=== PATIENT | male | born 1980 | race Caucasian/White ===

== ENCOUNTER 2018-10-21 15:23 | Emergency (ER) | payer SELFPAY ==
[2018-10-21 15:35] VITALS: BP 126/92; PULSE 99; RESP 18; TEMP 37.4; O2SAT 96
--- NOTE | 2018-10-21 16:29 | ED.GENADUL_ITS ---
Discharge Plan Disposition Patient Disposition: HOME Condition: Stable Discharge Details Chief Complaint: RespSymp Clinical Impression: URI (upper respiratory infection) Primary Care Provider: Sonu Self ED Provider: Davy Montano Home Meds and New Rx's Prescriptions: New benzonatate 200 mg capsule 200 mg PO TID PRN (Reason: cough) Qty: 30 RF: 0 Discharge Instructions Instructions: Upper Respiratory Infection (ED) Additional Instructions: During illness you should stay well hydrated, get plenty of rest, and use [id number] cough and cold therapy. Potential options to include Tylenol cold and flu severe, Robitussin-DM, or other medications for control of your symptoms. Just take as directed on packaging. Feel free to return to the emergency department or follow-up with your primary care provider for reassessment for any worsening of your symptoms Referrals: Sonu Self MD [Primary Care Provider] - (As needed for reassessment) Medical Decision Making Patient presenting to the emergency department with flulike symptoms. Patient states that symptoms began 2 days ago. field staff manager initiated protocol for rapid flu testing which was reviewed as negative. Patient was assessed and shows symptoms consistent with upper respiratory viral infection. Patient is nontoxic in appearance with clear lung sounds, nasal congestion, otherwise unremarkable HEENT exam and cardiac exam. Patient prescribed Tessalon Perles for cough and recommended to use [id number] cough and cold medication during illness. Patient has no signs of meningitis, pneumonia, epiglottitis, peritonsillar or retropharyngeal abscess. After discussion of diagnosis and plan of care patient has no further needs, questions, or concerns and states clear understanding to return to the emergency department for any worsening symptoms. HPI General Mode of arrival: ambulatory . Date/Time Provider Initiated Documentation: 10/21/18 16:06 . Limitations to Documentation: no limitations . Information obtained by: patient and RN notes reviewed . History of Present Illness 38 year old M presents to the emergency department with the chief complaint of Fever, chills, cough, described as moderate, with intensity rated at 4. Quality is described as aching (Body aches), Patient started experiencing this day(s) (2) and it has been constant. Patient did receive the following treatments prior to arrival, NSAID Related Data Home Medications Medication Instructions Recorded Confirmed benzonatate 200 mg PO TID PRN #30 cap 10/21/18 Previous Rx's Medication Instructions Recorded benzonatate 200 mg PO TID PRN #30 cap 10/21/18 Allergies Allergy/AdvReac Type Severity Reaction Status Date / Time No Known Allergies Allergy Unverified 10/21/18 15:40 General Stated Complaint: RespSymp TERESE: 3 Review of Systems Constitutional Reports chills, Reports fatigue, Reports fever(s) and Reports malaise ENT Denies otalgia, Reports nasal congestion, Reports nasal discharge, Reports sinus pressure and Reports sore throat Cardiovascular Denies dyspnea Respiratory Reports cough, Denies pain with cough and Denies dyspnea Musculoskeletal Denies joint swelling Integumentary/Breasts Denies rash Endocrine Reports fatigue PFSH Social History Smoking/Tobacco Use Status: Current every day Exam Const General: cooperative, comfortable and no acute distress Orientation: alert, awake and oriented x3 HENMT Head: normal to inspection Ears: hearing grossly normal bilaterally Face and sinus: sinus tenderness ethmoid Mouth: oral mucosae normal Throat: uvula midline, abnormal tonsil bilaterally erythema (mild) and posterior oropharynx abnormal erythema Eyes General: appearance normal, both eyes and all related structures Conjunctivae: conjunctivae normal Sclera: sclerae normal Neck Neck: normal visual inspection, full ROM, no lymphadenopathy, meningismus present and no JVD Resp Effort & Inspection: normal respiratory effort, able to speak in complete sentences, no audible wheezes and not labored Auscultation: clear to auscultation bilaterally Cardio Rate: regular rate Rhythm: regular rhythm Heart Sounds: S1 normal and S2 normal Skin General skin exam: no rashes or lesions noted and dry skin Rashes: no rashes Neuro General: alert, awake, oriented x3 and gait normal Course Vital Signs Temperature 37.4 C 10/21/18 15:35 Pulse 99 H 10/21/18 15:35 Respiratory Rate 18 10/21/18 15:35 Blood Pressure 126/92 H 10/21/18 15:35 Pulse Oximetry 96 10/21/18 15:35 Temperature 37.4 C 10/21/18 15:35 Temperature Source Temporal Artery Scan 10/21/18 15:35 Pulse 99 H 10/21/18 15:35 Respiratory Rate 18 10/21/18 15:35 Respiratory Effort 10/21/18 15:46 Respiratory Depth Normal 10/21/18 15:46 Blood Pressure 126/92 H 10/21/18 15:35 Blood Pressure Position Sitting 10/21/18 15:35 Pulse Oximetry 96 10/21/18 15:35 Oxygen Delivery Method Room Air 10/21/18 15:35 Oxygen Flow Rate 0 10/21/18 15:35 Lab/Test Results Lab/Test Results: 10/21/18 15:45 Nasopharynx Influenza Types A,B Antigen - Final
== END 2018-10-21 16:39 | disposition home or self-care (01) ==
PROVIDERS: Emergency Provider Nurse Practitioner Family; PCP Internal Medicine
DX: J06.9 Acute upper respiratory infection, unspecified (principal); F17.210 Nicotine dependence, cigarettes, uncomplicated
CPT/HCPCS: 87449; 99283

== ENCOUNTER 2020-02-28 07:03 | Emergency (ER) | payer SELFPAY ==
[2020-02-28 07:08] VITALS: BP 182/90; PULSE 90; TEMP 37; O2SAT 98
--- NOTE | 2020-02-28 07:12 | W.ED.GENAD ---
Discharge Plan Disposition Patient Disposition: HOME Condition: Good Discharge Details Chief Complaint: Orthopedic Clinical Impression: Bilateral fibular fractures Primary Care Provider: Sonu Self ED Provider: Rivera Thurman Home Meds and New Rx's Prescriptions: No Action No Known Home Meds RF: 0 Discharge Instructions Instructions: Leg Fracture (ED) Additional Instructions: Crutches for 7 to 10 days time until seen in clinic for follow-up. Ice 20 minutes at a time to reduce pain and swelling, elevate the legs. May use Tylenol and/or ibuprofen as needed for pain. Please follow-up with orthopedics as we discussed. They plan to see you next week. The office #[phone]. Call in the next few days for an appointment Return for worsening pain, cold/blue/numbness of the toes or any other acute concerns. Stand Alone Forms: Work Release Referrals: Hubert Jackson MD [ [facility] STAFF PHYSICIAN] - Discharge Data Discharge Date/Time-TO BE ENTERED AT DEPARTURE: 02/28/20 08:30 Medical Decision Making <Delta Centeno DO - Last Filed: 02/28/20 21:19> 39-year-old male with no past medical history presents for bilateral bishop and knee pain. Patient 3 days ago was trying to do a flip on the trampoline when he slammed his shins bilaterally on the lateral border of the trampoline. He has had continued pain since then, not amendable to NSAIDs. Worse with movement. He has developed mild to moderate bruising over the shins. Notable fibular head tenderness bilaterally, pain with movement of the knee, bruising throughout, and pain with active resistance to eversion of the ankles bilaterally causing referred pain to the proximal fibula's. Suspect notable contusion, concern for proximal fibular head fractures, symptoms seem inconsistent with blood clots at this time. Will get x-rays to rule out acute osseous fracture. <Rivera Thurman MD - Last Filed: 02/28/20 09:26> Received signout from Dr. Centeno. Please see his note regarding details of the history, initial exam. Patient with bilateral fibular head fractures. Discussed with Dr. Jackson. Will place him on crutches with weightbearing as tolerated and follow-up in clinic in 1 week's time. Discussed conservative treatment at home. Patient provided with a work note. 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 HPI <Delta Centeno DO - Last Filed: 02/28/20 21:19> General Date/Time Provider Initiated Documentation: 02/28/20 07:04. HPI Narrative: 39-year-old male with no significant past medical history who presents today for evaluation of bilateral leg pain. Patient states that 3 days ago he was on a trampoline, did a flip with his children and unfortunately simultaneously hit both of his shins on the metal edge while trying to do said flip. He had mild pain at that time, however since then he has had notable continued pain, worse with ambulation of movement. He has been taking ibuprofen which is only given some alleviation of the symptoms. Pain is located in the proximal fibula is only, and bilaterally. No patellar pain, no femur pain, no ankle pain. Pain is made worse with ambulation, movement and palpation. He denies any numbness or tingling. He denies history of blood clots. No other complaints at this time. Related Data Home Medications Medication Instructions Recorded Confirmed Unknown [No Known Home Meds] 02/28/20 02/28/20 Allergies Allergy/AdvReac Type Severity Reaction Status Date / Time bee venom protein (honey bee) Allergy Unverified 02/28/20 07:13 General Stated Complaint: Orthopedic TERESE: 3 Review of Systems <Delta Centeno DO - Last Filed: 02/28/20 21:19> All systems reviewed & are unremarkable except as noted in HPI and below PFSH <Delta Centeno DO - Last Filed: 02/28/20 21:19> Social History (Updated 10/21/18 @ 16:30 by Davy Montano NP) Smoking/Tobacco Use Status: Current every day Tobacco Type: cigarettes Alcohol Intake: current Alcohol Intake frequency: 0-2 drinks per day Alcohol type: beer Drug use: Never Substance use type: does not use Do you feel safe at home: Yes Do you feel safe in your relationship?: Yes Exam <Delta Centeno DO - Last Filed: 02/28/20 21:19> Narrative Exam Narrative: 1.Const: Well-nourished, Well-developed, appearing stated age 2.Eyes: PERRL, no conjunctival injection, and symmetrical lids. 3.ENT: Atraumatic external nose and ears. Moist MM. Neck: Symmetric, trachea midline, No thyromegaly. 4.CVS: +S1/S2, No murmurs or gallops. Peripheral pulses 2+ and equal in all extremities. Brisk capillary refill in all extremities. 5.RESP: Unlabored respiratory effort. Clear to auscultation bilaterally. No wheezes rales or rhonchi 6.GI: Soft, Nontender/Nondistended, No hepatosplenomegaly. No guarding or rebound. 7.MSK: Normocephalic, both legs demonstrate very similar findings, there is bruising noted over the mid bishop anteriorly, as well as proximally over the proximal fibular heads bilaterally. Notable tenderness over the fibular heads bilaterally, but no tibial plateau tenderness. Pain is present with movement of the knees especially with varus stretching bilaterally. Additionally he has referred pain to his proximal fibula is when there is active movement against ankle eversion. Aside for the bruising the patient has good brisk capillary refill, normal sensation, good dorsiflexion of the great toe, as well as plantar and dorsiflexion of the feet. 8.Skin: Warm, Dry. No rashes or lesions. 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 Sensation grossly intact, no focal neurologic deficits. 10.Psych: (AAO) x3. Appropriate mood and affect Course <Delta Centeno, DO - Last Filed: 02/28/20 21:19> Vital Signs Vital signs: Vital Signs Temperature 37.0 C 02/28/20 07:08 Pulse 90 02/28/20 07:08 Blood Pressure 182/90 H 02/28/20 07:08 Pulse Oximetry 98 02/28/20 07:08 Temperature 37.0 C 02/28/20 07:08 Temperature Source Temporal Artery Scan 02/28/20 07:08 Pulse 90 02/28/20 07:08 Blood Pressure 182/90 H 02/28/20 07:08 Blood Pressure Position Sitting 02/28/20 07:08 Pulse Oximetry 98 02/28/20 07:08 Oxygen Delivery Method Room Air 02/28/20 07:08 Oxygen Flow Rate 0 02/28/20 07:08 Pain Level 9 02/28/20 07:08 Sign Out <Deltacindy Centeno DO - Last Filed: 02/28/20 21:19> Sign Out Data: Sign Out Comment: Pending x-ray imaging results for fracture Last updated by Delta Centeno DO at 02/28/20 07:34
--- NOTE | 2020-02-28 07:50 | DI.RAD_ITS ---
EXAM: XR TIB/FIB RT CLINICAL HISTORY: hit metal trampoline, bilat prox fib pain TECHNIQUE: COMPARISON: No exams were available for comparison FINDINGS: Two views were obtained and show nondisplaced fibular head fracture as noted on radiographs of the kn ee. No additional fracture seen. IMPRESSION:
--- NOTE | 2020-02-28 07:50 | DI.RAD_ITS ---
EXAM: XR KNEE LT 3V AP,LAT,ARRON CLINICAL HISTORY: bilaeral knee and prox fib pain TECHNIQUE: COMPARISON: CR XR KNEE RT 3V AP,LAT,ARRON from 02/28/2020 FINDINGS: Three views were obtained, no significant knee joint effusion seen. There is a suspected nondisplaced fibular head fracture which by history is consistent with the patie nt's clinical presentation. No additional fracture seen. IMPRESSION:
--- NOTE | 2020-02-28 07:50 | DI.RAD_ITS ---
EXAM: XR KNEE RT 3V AP,LAT,ARRON CLINICAL HISTORY: bilaeral knee and prox fib pain TECHNIQUE: COMPARISON: CR XR KNEE LT 3V AP,LAT,ARRON from 02/28/2020 FINDINGS: Three views were obtained. No significant knee joint effusion seen. There is clinically reported yin spicion of proximal fibular fracture, there is in fact slight cortical discontinuity of the proximal fibula with suggestion of transverse lucency. Findings are consistent with a nondisplaced fibular he ad fracture. IMPRESSION:
--- NOTE | 2020-02-28 07:50 | DI.RAD_ITS ---
EXAM: XR TIB/FIB LT CLINICAL HISTORY: hit metal trampoline, bilat prox fib pain TECHNIQUE: COMPARISON: CR XR TIB/FIB RT from 02/28/2020 FINDINGS: Two views were obtained and show nondisplaced fracture of the fibular head as noted on radiographs of the knee. No additional fracture seen. IMPRESSION:
[2020-02-28] MEDS: Acetaminophen 500 MG TAB 1000 MG PO (08:07)
[2020-02-28] MEDS: Ibuprofen 800 MG TAB PO (08:08)
[2020-02-28] MEDS: Lidocaine 5% Patch 2 PATCH TP (08:08)
--- NOTE | 2020-02-28 08:26 | NUR.NOTE ---
Nursing Note: FAXED REFERRAL SENT TO ORTH[facility]
== END 2020-02-28 08:30 | disposition home or self-care (01) ==
PROVIDERS: Emergency Provider Emergency Medicine; PCP Internal Medicine
DX: S82.491A Other fracture of shaft of right fibula, initial encounter for closed fracture (principal); S82.492A Other fracture of shaft of left fibula, initial encounter for closed fracture; W09.8XXA Fall on or from other playground equipment, initial encounter; Y93.44 Activity, trampolining
CPT/HCPCS: 27780; 73562; 73590; E0114

== ENCOUNTER 2020-03-12 11:22 | Outpatient (CLI) | payer SELFPAY ==
--- NOTE | 2020-03-12 10:30 | DI.RAD_ITS ---
EXAM: XR ANKLE RT 2V CLINICAL HISTORY: f/u fracture TECHNIQUE: 2D digital imaging was performed. COMPARISON: No exams were available for comparison FINDINGS: No fracture or ankle mortise widening is seen. There is no talar dome defect. There are no signific ant significant degenerative changes. IMPRESSION: Negative right ankle.
--- NOTE | 2020-03-12 10:30 | DI.RAD_ITS ---
EXAM: XR ANKLE LT 2V CLINICAL HISTORY: f/u fracture TECHNIQUE: 2D digital imaging was performed. COMPARISON: CR XR TIB/FIB LT from 02/28/2020 CR XR ANKLE RT 2V from 03/12/2020 CR XR TIB/FIB LT from 03/12/2020 FINDINGS: No fracture or ankle mortise widening is seen. There is no talar dome defect. There are no signifi cant degenerative changes. IMPRESSION: Negative left ankle.
--- NOTE | 2020-03-12 10:30 | DI.RAD_ITS ---
EXAM: XR TIB/FIB RT CLINICAL HISTORY: fu fracture TECHNIQUE: 2D digital imaging was performed. COMPARISON: CR XR TIB/FIB RT from 02/28/2020 CR XR TIB/FIB LT from 02/28/2020 FINDINGS: There has been no change in alignment of the proximal fibular fracture. There is increased callus fo rmation around the fracture site. The knee and ankle are unremarkable as visualized. No new abnorma lities are seen. IMPRESSION: Healing fracture of the proximal fibula.
--- NOTE | 2020-03-12 10:30 | DI.RAD_ITS ---
EXAM: XR TIB/FIB LT CLINICAL HISTORY: fu fracture TECHNIQUE: 2D digital imaging was performed. COMPARISON: CR XR TIB/FIB LT from 02/28/2020 CR XR TIB/FIB RT from 03/12/2020 FINDINGS: There has been no change in alignment of the proximal fibular fracture. There is some callus formati on around the fracture site. No additional fractures or ankle mortise widening is seen. IMPRESSION: Healing fracture of the proximal fibula.
== END 2020-03-12 11:42 ==
PROVIDERS: PCP Internal Medicine; Referring Provider Internal Medicine; Visit Provider Student in an Organized Health Care Education/Training Program
DX: S82.491D Other fracture of shaft of right fibula, subsequent encounter for closed fracture with routine healing (principal); S82.492D Other fracture of shaft of left fibula, subsequent encounter for closed fracture with routine healing
CPT/HCPCS: 73590; 73600

== ENCOUNTER 2023-07-25 17:48 | Emergency (ER) | payer SELFPAY ==
[2023-07-25 17:55] VITALS: BP 179/100; PULSE 92; RESP 20; TEMP 37; O2SAT 97
--- NOTE | 2023-07-25 18:15 | DI.RAD_ITS ---
Exam(s) XR RIBS RT W PA LAT CHEST CLINICAL HISTORY: Right posterior rib pain. COMPARISON: CR CHEST 2 VIEWS PA,LAT from 03/05/2016 TECHNIQUE:: PA and lateral views of the chest and four views of the right ribs were performed. FINDINGS: LUNGS:Clear. No pleural abnormality seen. HEART: Normal. MEDIASTINUM: Normal. BONES: No displaced rib fracture is seen. No bony destructive lesion is seen. Stable mild lower thor acic compression fracture. Right shoulder unremarkable. OTHER FINDINGS: None. IMPRESSION: 1. Unremarkable radiographic appearance of the right ribs. 2. No acute pulmonary findings.
--- NOTE | 2023-07-25 18:57 | DI.VRAD_ITS ---
PROCEDURE INFORMATION: Exam: XR Right Ribs Exam date and time: 07/25/2023 6:40 PM Age: 43 years old Clinical indication: Chest wall pain and right-sided; Patient HX: Right posterior rib pain TECHNIQUE: Imaging protocol: Radiologic exam of the right ribs. Views: 2 views. COMPARISON: No relevant prior studies available. FINDINGS: Bones/joints: No acute fracture with attention to the right-sided ribs. Soft tissues: Normal. IMPRESSION: No acute fracture with attention to the right-sided ribs. PROCEDURE INFORMATION: Exam: XR Chest Exam date and time: 07/25/2023 6:40 PM Age: 43 years old Clinical indication: Chest wall pain and right-sided; Patient HX: Right posterior rib pain TECHNIQUE: Imaging protocol: Radiologic exam of the chest. Views: 2 views. COMPARISON: No relevant prior studies available. FINDINGS: Lungs: Mild hyperinflation without airspace consolidation. Pleural spaces: No pleural effusion. No pneumothorax. Heart/Mediastinum: No cardiomegaly. Bones/joints: No acute fracture. IMPRESSION: Mild hyperinflation without airspace consolidation. Dictated and Authenticated by: Aminata Mccallum MD. Ordering:CHER Jacinto MD
--- NOTE | 2023-07-25 22:15 | ED.GENADUL_ITS ---
Discharge Plan Disposition Patient Disposition: Home Discharge Details Clinical Impression: Contusion of back wall of thorax Primary Care Provider: Sonu Self ED Provider: Ophelia Montana Home Meds and New Rx's Prescriptions: New cyclobenzaprine 10 mg tablet 10 mg PO TID PRNQty: 20 0RF Continued ibuprofen 400 mg tablet 400 mg PO TID Discharge Instructions Instructions: Contusion in Adults (ED) Additional Instructions: take flexeril as prescribed This can help with pain Make sure you take at least 6 full inhalations the next lesions daily to prevent pneumonia You may apply Voltaren gel or use lidocaine patches over area of tenderness Keep wound clean and dry Please return earlier should you develop fever, chills, worsening shortness of breath Stand Alone Forms: Work Release Discharge Data Discharge Date/Time-TO BE ENTERED AT DEPARTURE: 07/25/23 19:58 Medical Decision Making 43-year-old male, alert and oriented, GCS 15 cranial nerves II through XII intact, clinically sober and of decisional capacity, ambulatory steady gait, abrasion and contusion noted to posterior thorax, no crepitus, lungs clear to auscultation, no tenderness to palpation in the abdomen or anterior thorax, no tenderness to arms or lower extremities Neurovascularly intact Chest x-ray and ribs per radiology interpretation my review does not show evidence of acute abnormality No hypoxia Blood pressure slightly elevated, encouraged to follow-up with primary care physician Encourage deep breathing, work note supplied Return precautions reviewed and patient expressed understanding HPI General Date/Time Provider Initiated Documentation: 07/25/23 17:56 . HPI Narrative: This 43-year-old male presents with contusion to posterior thorax. He was in a [place] and had side impact. He was able to self extricate, he denies any additional injuries. He denies any shortness of breath but does have pain with breathing. He denies any abdominal pain lower extremity pain, upper extremity pain, or history of coagulopathy. Related Data Home Medications Medication Instructions Recorded Confirmed ibuprofen 400 mg tablet 400 mg PO TID 03/12/20 03/12/20 cyclobenzaprine 10 mg tablet 10 mg PO TID PRN #20 tabs 07/25/23 Previous Rx's Medication Instructions Recorded cyclobenzaprine 10 mg tablet 10 mg PO TID PRN #20 tabs 07/25/23 Allergies Allergy/AdvReac Type Severity Reaction Status Date / Time bee venom protein (honey bee) Allergy Verified 03/12/20 10:34 General Stated Complaint: Chest/Rib TERESE: 3 PFSH All Active Problems (Updated 07/25/23 @ 19:52 by HESHAM Garrison) Contusion of back wall of thorax (Acute) No-show for appointment (Acute) Social History (Updated 10/21/18 @ 16:30 by Davy Montano NP) Smoking/Tobacco Use Status: Current every day Tobacco Type: cigarettes Smoking risk assessment performed?: Yes Alcohol Intake: current Alcohol Intake frequency: 0-2 drinks per day Alcohol type: beer Drug use: Never Substance use type: does not use Housing: house Do you feel safe at home: Yes Do you feel safe in your relationship?: Yes Course Vital Signs Vital signs: Vital Signs Temperature 37.0 C 07/25/23 17:55 Pulse 92 H 07/25/23 17:55 Respiratory Rate 20 07/25/23 17:55 Blood Pressure 179/100 H 07/25/23 17:55 Pulse Oximetry 97 07/25/23 17:55 Temperature 37.0 C 07/25/23 17:55 Pulse 92 H 07/25/23 17:55 Respiratory Rate 20 07/25/23 17:55 Respiratory Effort Normal, Non-Labored 07/25/23 18:04 Respiratory Depth Shallow 07/25/23 18:04 Respiratory Pattern Normal 07/25/23 18:04 Blood Pressure 179/100 H 07/25/23 17:55 Pulse Oximetry 97 07/25/23 17:55 Oxygen Delivery Method Room Air 07/25/23 17:55 Oxygen Flow Rate 0 07/25/23 17:55 Pain Level 7 07/25/23 18:04
== END 2023-07-25 19:58 | disposition home or self-care (01) ==
PROVIDERS: Emergency Provider Physician Assistant; PCP Internal Medicine
DX: S20.223A Contusion of bilateral back wall of thorax, initial encounter (principal); F17.210 Nicotine dependence, cigarettes, uncomplicated; V43.62XA Car passenger injured in collision with other type car in traffic accident, initial encounter; Y92.488 Other paved roadways as the place of occurrence of the external cause; Y93.89 Activity, other specified; Y99.9 Unspecified external cause status
CPT/HCPCS: 90472; 99283; 71046; 71100

== ENCOUNTER 2023-08-04 10:46 | Emergency (ER) | payer SELFPAY ==
[2023-08-04] VITALS (19 sets, daily range): BP systolic 151–179; BP diastolic 100–115; PULSE 90–110; RESP 18; TEMP 37; O2SAT 95–98
--- NOTE | 2023-08-04 11:00 | DI.RAD_ITS ---
Exam(s) XR RIBS RT PA CHEST 3V EXAM: XR RIBS RT PA CHEST 3V CLINICAL HISTORY: right rib injury one week ago, pain sob TECHNIQUE: 2D digital imaging was performed. Images were obtained. COMPARISON: No exams were available for comparison FINDINGS: MEDIASTINUM: Normal. HEART: Normal. PULMONARY VASCULATURE: Normal. LUNGS: Clear. PLEURAL SPACE: There is blunting of the right costophrenic angle suggesting a tiny right pleural effu douglas. No pneumothorax is seen. No left pleural effusion is present. BONE:Normal. RIGHT RIBS: There are minimally displaced fractures of the posterior aspects of the right 9th and 10t h ribs. OTHER FINDINGS:Normal. IMPRESSION: 1. Tiny right pleural effusion. No pneumothorax. 2. Minimally displaced fractures involving the posterior aspects of the right 9th and 10th ribs. DATA REPOSITORY: RADIATION DOSE DELIVERED:
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
[2023-08-04] MEDS: Lidocaine 5% Patch 1 PATCH TP (11:54)
[2023-08-04] MEDS: Ketorolac 15 MG/ML VIAL IVP (11:55)
[2023-08-04 11:59] LABS: Abs Immature Grans 0.04 10^3/uL (0.0-0.06); Absolute Eosinophil Count 0.19 10^3/uL (0.0-0.7); Absolute Lymphocyte Count 2.15 10^3/uL (1.2-3.4); Basophils % 0.8; Eosinophils % 1.6; HCT 48.6 % (40.0-50.0); HGB 16.8 g/dL (13.5-17.5); Immature Grans % 0.3; MCH 32.1 pg (27.0-33.0); MCHC 34.6 % (32.0-36.0); MCV 93 fL (80-95); MPV 8.2 fL (8.0-11.0); Monocytes % 5.9; Neutrophils % 73.4; Platelet Count 370 10^3/uL (130-400); RBC 5.24 10^6/uL (4.36-5.78); RDW 12.9 % (11.8-14.1); RDW-SD 43.9 fL; WBC 11.95 10^3/uL (4.4-10.8)
[2023-08-04 12:02] LABS: Absolute Monocyte Count 0.71 10^3/uL (0.1-0.8); Absolute Neutrophil Count 8.77 10^3/uL (1.2-6.7)
[2023-08-04 12:12] LABS: PTT Activated 27.5 sec (23.6-32.8); Prothrombin Time 9.7 sec (9.1-11.1)
[2023-08-04 12:13] LABS: ALT 35 U/L (16-63); AST 23 U/L (15-37); Albumin 3.9 g/dL (3.4-5.0); Alkaline Phosphatase 98 U/L (46-116); Anion Gap 9.4 mmol/L (3-11); BUN 9 mg/dL (7-18); Bilirubin, Total 0.3 mg/dL (0.2-1.0); CO2 26.6 mmol/L (21.0-32.0); CREATININE 0.8 mg/dL (0.70-1.30); Calcium 9.9 mg/dL (8.5-10.1); Chloride 100 mmol/L (98-107); Estimated GFR 112.61 (mL/min/1.73m2); Glucose 87 mg/dL (74-106); Potassium 4.4 mmol/L (3.5-5.1); Sodium 136 mmol/L (136-145); Total Protein 8.5 g/dL (6.4-8.2)
[2023-08-04] MEDS: Normal Saline - Diluent 50 ML VIAL IJ (13:24)
[2023-08-04] MEDS: Omnipaque 350 MG/ML 100 ML BTL IJ (13:25)
== END 2023-08-04 15:36 | disposition home or self-care (01) ==
PROVIDERS: Emergency Provider Emergency Medicine; PCP Internal Medicine
DX: M48.54XA Collapsed vertebra, not elsewhere classified, thoracic region, initial encounter for fracture (principal); S22.41XA Multiple fractures of ribs, right side, initial encounter for closed fracture; J90 Pleural effusion, not elsewhere classified; X58.XXXA Exposure to other specified factors, initial encounter
CPT/HCPCS: 74177; 80053; 96374; 99285; 71046; 71100; 71260; 85025; 85610; 85730; 99284; J1885; J3490